=== PATIENT | female | born 1970 | race Caucasian/White ===

== ENCOUNTER → 2016-07-30 | Outpatient (CLI) | payer BC ==
[~2016-07-30] MED LIST: ALDACTONE PO; ALLEGRA PO; CENTURY CARDIO1 EACH PO; COQ-1050 MG PO; CURCUMIN1 GM MC; DULOXETINE HCL60 M1 PO; FLEXERIL10 M1 PO; FOLIC ACID1 MG PO; HYDROCHLOROTHIA25 MG PO; LORTAB 7.51 TAB 7.5/ PO; NEURONTIN300 MG PO; OMEGA 3 500 SO1 EACH PO; SELENIUM200 MC2 PO; SPIRONOLACTONE100 MG PO; STOOL SOFTENER1 EAC1 PO; SULFAZINE500 M1 PO; TECFIDERA240 MG PO; TOPROL XL50 MG PO; VITAMIN B-1000 MCG/1 INJ; VITAMIN D35000 UNIT PO
--- NOTE | ~2016-07-30 | MR175 ---
[facility] A Service of [facility] & [facility] RADIOLOGY TEXT RESULTS PATIENT: EASTON KO LOCATION: CMRI : 72 UNIT #: [id number] AGE: [address]: Abdoul Syed II, MD SEX: F ORDER DR: [id number] [facility] [address] [place], [place] [address] [id number] O MR#: [id number] Acc #: [id number] NAME: EASTON KO : 1970 SEX: F STUDY DATE/TIME: 07/30/2016 19:26 UNIT: [facility] ROOM: STUDY DESCRIPTION: MR Thoracic WWo Contrast Attending Physician: Abdoul Syed II., M.D. Referring Physician: Abdoul Syed II., M.D. Ordering Physician: Abdoul Syed II., M.D. Primary Care Physician: Su Mahoney M.D. MRI CENTER REPORT This report is preliminary unless electronic signature is present. EXAM MRI of the thoracic spine with and without contrast dated 07/30/2016 COMPARISON MRI of the thoracic spine with and without contrast dated 08/23/2014 HISTORY Multiple sclerosis diagnosed in May 2013. Right side complete numbness since yesterday. FINDINGS Multisequence multiplanar imaging of the thoracic spine was obtained with and without contrast. GFR measured greater than 60. 17 mL of MultiHance was administered intravenously. Vertebral body heights and alignment are preserved. There is a fatty signal lesion with edema in the left lateral aspect of T8 vertebral body measuring 1.5 cm. Smaller similar lesions at T6 are also present. They have a nonaggressive benign appearance. Mild fatty endplate changes are noted at T9-10. Degenerative disc disease with disc bulges are at multiple levels, worse at T8-9 with right central to subarticular disc extrusion with mild superior and inferior migration of 1.0 cm. It causes mild mass effect on the adjacent thecal sac without cord compression or significant canal stenosis. At this level the cord demonstrates nonenhancing stable increased T2 signal within it, better seen on the prior study from 2 years ago. It appears to be a slightly ill-defined on the current study due to motion artifact. It is about 8.5 mm in height and is stable without any enhancement associated with it. It involves the mid portion of the cord and most of the cord. Stable. Faint increased T2 signal changes are also noted at multiple other areas above the cord but it is nonspecific. Pre and paravertebral soft tissues are unremarkable. IMPRESSION 1. No significant interval change given the differences in slice STS. [facility] A Service of [facility] RADIOLOGY TEXT RESULTS PATIENT: EASTON KO LOCATION: CMRI : 72 UNIT #: [id number] AGE: [address]: Abdoul Syed II, MD SEX: F ORDER DR: mann. 2. There is a stable nonenhancing cord lesion at the level of T8-9, most consistent with an MS plaque. It has a height of 8.5 mm. 3. Degenerative disc disease is at multiple levels, worse at T8-9 with right central to subarticular disc extrusion with a height of 1.0 cm. Mild stable mass effect on the adjacent thecal sac without cord compression. Dictated by... Мария Meredith M.D. THIS IS AN ELECTRONICALLY VERIFIED REPORT Мария Meredith M.D. at 08/02/2016 5:17 PM MALISSA/brian TD: 08/02/2016 10:35 JOB #: [id number] MRI CENTER REPORT COPY
--- NOTE | ~2016-07-30 | MR31 ---
[facility] A Service of [facility] & [facility] RADIOLOGY TEXT RESULTS PATIENT: EASTON KO LOCATION: CMRI : 72 UNIT #: [id number] AGE: [address]: Abdoul Syed II, MD SEX: F ORDER DR: [id number] [facility] [address] [place], [place] [address] [id number] O MR#: [id number] Acc #: [id number] NAME: EASTON KO : 1970 SEX: F STUDY DATE/TIME: 07/30/2016 19:26 UNIT: [facility] ROOM: STUDY DESCRIPTION: MR Cervical WWo Contrast Attending Physician: Abdoul Syed II., M.D. Referring Physician: Abdoul Syed II., M.D. Ordering Physician: Abdoul Syed II., M.D. Primary Care Physician: Su Mahoney M.D. MRI CENTER REPORT This report is preliminary unless electronic signature is present. EXAM MRI of the cervical spine with and without contrast dated 07/30/2016. COMPARISON MRI cervical spine with and without contrast dated 03/03/2015. HISTORY Multiple sclerosis diagnosed in May 2013. There is complete numbness on the right side since yesterday. FINDINGS Multisequence, multiplanar imaging of the cervical spine was obtained with and without contrast. GFR measured greater than 60. 17 mL of MultiHance was administered intravenously. Vertebral body heights and alignment are preserved. Degenerative disc disease is at multiple levels throughout the cervical spine. Cord demonstrates increased T2-signal lesion in the posterior aspect of the cord at the level of C3-4 extending to the C4, stable and nonenhancing. Pre and paravertebral soft tissues do not demonstrate any significant abnormality. C2-3 to C4-5: Mild disc bulge but otherwise unremarkable. C5-6: Concentric disc bulge with likely small central protrusion. No canal stenosis or neural foraminal narrowing. Stable. C5-6: Concentric disc bulge with small central protrusion. Mild mass effect on the adjacent thecal sac is seen without neural foraminal narrowing. Stable. See 71: Mild degenerative disc signal loss but otherwise unremarkable. IMPRESSION 1. Stable chronic multiple sclerosis plaque at the level of C3-4 STS. [facility] A Service of [facility] & [facility] RADIOLOGY TEXT RESULTS PATIENT: EASTON KO [facility] UNIT #: [id number] AGE: [address]: Abdoul Syed II, MD SEX: F ORDER DR: extending to C4 measuring 7.5 mm in height. It has an axial dimension of 2.5 x 4 mm. Stable. 2. Disc disease is seen particularly at C5-6 and C6-7, stable. Dictated by... Мария Meredith M.D. THIS IS AN ELECTRONICALLY VERIFIED REPORT Мария Meredith M.D. at 08/02/2016 5:17 PM CPR/tmw TD: 08/02/2016 10:41 JOB #: [id number] MRI CENTER REPORT COPY
[2016-07-30 19:50] LABS: POC - CREATININE 0.92 mg/dL (0.44-1.03); POC - GFR >60.0 mL/min (>60)
== END | disposition home or self-care (01) ==
LOC: CMRI 18:41
PROVIDERS: Psychiatry & Neurology Neurology
DX: G35 Multiple sclerosis (principal); M50.922 Unspecified cervical disc disorder at C5-C6 level; M50.923 Unspecified cervical disc disorder at C6-C7 level; M51.24 Other intervertebral disc displacement, thoracic region; M51.34 Other intervertebral disc degeneration, thoracic region
CPT/HCPCS: 72156; 72157; 82565; A9577

== ENCOUNTER → 2016-07-30 | Outpatient (CLI) | payer BC | END | disposition home or self-care (01) | LOC: CSSDAY 11:12 | DX: G35 Multiple sclerosis (principal); Z79.899 Other long term (current) drug therapy | CPT/HCPCS: 96365; 96374; J1885; J2930 ==

== ENCOUNTER → 2016-08-02 | Outpatient (CLI) | payer BC ==
--- NOTE | ~2016-08-02 | MR17 ---
[facility] A Service of [facility] & [facility] RADIOLOGY TEXT RESULTS PATIENT: EASTON KO LOCATION: CM[facility] : 72 UNIT #: [id number] AGE: [address]: Abdoul Syed II, MD SEX: F ORDER DR: [id number] [facility] [address] [place], [place] [address] [id number] O MR#: [id number] Acc #: [id number] NAME: EASTON KO : 1970 SEX: F STUDY DATE/TIME: 08/02/2016 18:55 UNIT: [facility] ROOM: STUDY DESCRIPTION: MR Brain WWo Contrast Attending Physician: Abdoul Syed II., M.D. Ordering Physician: Abdoul Syed II., M.D. Primary Care Physician: Su Mahoney M.D. MRI CENTER REPORT This report is preliminary unless electronic signature is present. EXAM MRI brain, with and without contrast. HISTORY Multiple sclerosis diagnosed May 2013. Right arm, hand, torso, and quadriceps numbness acutely on 07/29/2016. No known injury. Residual numbness since 2013. Steroid infusion, 08/02/2016. COMMENT MRI of the brain was performed prior and following intervenous administration of 17 mL of MultiHance. Comparison study is from 03/03/2015. Small focus of T2 shine-through in the right posterior centrum semiovale. This corresponds to a small chronic plaque, about 5 mm in largest dimension. Punctate areas of white matter signal abnormality in the left more posterior arango radiata, unchanged. The lesion in the right posterior centrum semiovale is more conspicuous and well-defined, but no discretely new lesions are appreciated. There is no extraaxial fluid collection. The major intracranial flow voids are maintained. The visualized paranasal sinuses and mastoid air cells are clear. There is no intracranial mass effect. The ventricles are normal in size and configuration. There is no MRI evidence for intracranial hemorrhage. Following contrast administration, there is no pathologic intracranial enhancement. No intracranial mass lesion or mass effect. At this time, there is no imaging evidence for active demyelination. IMPRESSION Redemonstration of mild white matter disease, consistent with provided clinical diagnosis of multiple sclerosis. There is no imaging evidence for STS. [facility] A Service of [facility] & [facility] RADIOLOGY TEXT RESULTS PATIENT: EASTON KO LOCATION: [facility] : 72 UNIT #: [id number] AGE: [address]: Abdoul Syed II, MD SEX: F ORDER DR: active demyelination and no definitely new lesions are seen. The most focal lesion in the right posterior centrum semiovale is more well-defined and conspicuous, but otherwise, there is no significant interval change. No appreciable volume loss for age group. Dictated by... Dorothea Contreras M.D. THIS IS AN ELECTRONICALLY VERIFIED REPORT Dorothea Contreras M.D. at 08/03/2016 4:59 PM Apoorva TD: 08/03/2016 14:06 JOB #: [id number] MRI CENTER REPORT COPY
== END | disposition home or self-care (01) ==
LOC: CMRI 18:14
DX: G35 Multiple sclerosis (principal); R90.82 White matter disease, unspecified
CPT/HCPCS: 70553; A9577

== ENCOUNTER → 2016-08-02 | Outpatient (CLI) | payer BC | END | disposition home or self-care (01) | LOC: CSSDAY 09:30 | DX: G35 Multiple sclerosis (principal); Z79.899 Other long term (current) drug therapy | CPT/HCPCS: 96365; 96374; J1885; J2930 ==